=== PATIENT | female | born 1975 | race Caucasian/White ===

== ENCOUNTER 2018-05-17 18:54 | Emergency (ER) | payer SELFPAY ==
[2018-05-17] MEDS ORDERED: ASPIRIN PO ONE (19:02)
[2018-05-17 20:24] LABS: Mean Corpuscular HGB Conc 30 % (30-34); Platelet Count 423 K/mm3 (140-440); Red Blood Count 4.67 M/mm3 (3.65-5.03)
[2018-05-17 20:25] LABS: Hematocrit 30.3 % (30.3-42.9)
[2018-05-17 20:26] LABS: Mean Corpuscular Volume 65 fl (79-97); Red Cell Distribution Width 25.1 % (13.2-15.2)
[2018-05-17 20:31] LABS: BUN/Creatinine Ratio 20; Blood Urea Nitrogen 16 mg/dL (7-17); Calcium 8.9 mg/dL (8.4-10.2); Hemolysis Index 0
[2018-05-17 20:52] LABS: Basophils % (Manual) 0 % (0.0-1.8); Eosinophils % (Manual) 0 % (0.0-4.3); Total Cells Counted 100
[2018-05-17 20:53] LABS: Anisocytosis 2+; Hypochromasia 2+; Ovalocytes 1+; Platelet Estimate Consistent w Auto
--- NOTE | 2018-05-17 22:08 | Emergency Department Report ---
ED General Adult HPI - General Chief complaint: Dizziness Stated complaint: HYPERTENSION Time Seen by Provider: 05/17/18 22:00 Source: patient Mode of arrival: Ambulatory Limitations: No Limitations - History of Present Illness Initial comments: Patient is 42 years old female with no significant past medical history. Patient presented to the ER complaining of dizziness, shortness of breath, pain to the left arm and shoulder. Patient stated that she went to the police station and they check her blood pressure was high. Patient stated that she never had any high blood pressure before. Patient denied any weakness, numbness or tingling sensation. She denied chest pain. - Related Data Allergies Allergy/AdvReac Type Severity Reaction Status Date / Time No Known Allergies Allergy Verified 05/17/18 23:38 ED Review of Systems ROS: Stated complaint: HYPERTENSION Other details as noted in HPI Comment: All other systems reviewed and negative Constitutional: denies: chills, fever Cardiovascular: palpitations. denies: chest pain Gastrointestinal: denies: abdominal pain, nausea, vomiting, diarrhea, constipation, hematemesis, melena, hematochezia Musculoskeletal: denies: back pain Neurological: denies: headache, weakness, numbness, paresthesias, confusion ED Past Medical Hx - Past Medical History Previous Medical History?: Yes Additional medical history: anemia - Surgical History Past Surgical History?: Yes Additional Surgical History: C section - Social History Smoking Status: Never Smoker Substance Use Type: None ED Physical Exam - General Limitations: No Limitations General appearance: alert, in no apparent distress - Head Head exam: Present: atraumatic, normocephalic, normal inspection - Eye Eye exam: Present: normal appearance - ENT ENT exam: Present: normal exam, normal orophraynx, mucous membranes moist - Neck Neck exam: Present: normal inspection, full ROM. Absent: tenderness, meningismus, lymphadenopathy, thyromegaly - Respiratory Respiratory exam: Present: normal lung sounds bilaterally - Cardiovascular Cardiovascular Exam: Present: regular rate, normal rhythm, normal heart sounds - GI/Abdominal GI/Abdominal exam: Present: soft, normal bowel sounds. Absent: distended, tenderness, guarding, rebound, rigid, organomegaly, mass, bruit, pulsatile mass, hernia - Extremities Exam Extremities exam: Present: normal inspection, full ROM, normal capillary refill. Absent: pedal edema, calf tenderness - Back Exam Back exam: Present: normal inspection, full ROM. Absent: tenderness, CVA tenderness (R), CVA tenderness (L), muscle spasm, paraspinal tenderness, vertebral tenderness, rash noted - Neurological Exam Neurological exam: Present: alert, oriented X3, CN II-XII intact, normal gait, reflexes normal - Skin Skin exam: Present: warm, intact, normal color ED Course Vital Signs 05/17/18 05/17/18 18:59 22:30 Temperature 98 F Pulse Rate 103 H 83 Respiratory 16 14 Rate Blood Pressure 162/98 168/84 O2 Sat by Pulse 100 100 Oximetry ED Medical Decision Making - Lab Data Result diagrams: 05/17/18 20:06 05/17/18 20:06 - EKG Data -: EKG Interpreted by Sc EKG shows normal: sinus rhythm Rate: normal - EKG Data Interpretation: no acute changes - Radiology Data Radiology results: report reviewed Referring Physician: CINDI MONTENEGRO Patient Name: MAXWELL CUNNINGHAM Date of : 1975 Sex: Female Report Date: 2018-05-17 Report Status: Finalized Findings [facility] [address] [place] [address] XRay Report Signed Patient: MAXWELL CUNNINGHAM MR#: [id number] : 1975 Acct:[id number] Age/Sex: 42 / F ADM Date: 05/17/18 Loc: ED Attending Dr: Ordering Physician: CINDI MONTENEGRO Date of Service: 05/17/18 Procedure(s): XR chest 1V ap Accession Number(s): [id number] cc: CINDI MONTENEGRO Fluoro Time In Minutes: FINAL REPORT EXAM: XR CHEST 1V AP HISTORY: chest pain COMPARISON: None available. FINDINGS: Frontal view(s) of the chest obtained. Cardiac silhouette within normal limits. No gross consolidation or effusion. No pneumothorax. IMPRESSION: No grossly acute findings. Transcribed By: LMA Dictated By: ILTA SANTORO MD Electronically Authenticated By: LITA SANTORO MD Signed Date/Time: 05/17/182258 DD/ 00 TD/TT: 05/17/182300 Referring Physician: CINDI MONTENEGRO Patient Name: MAXWELL CUNNINGHAM Date of : 1975 Sex: Female Report Date: 2018-05-18 Report Status: Finalized Findings [facility] [address] [place] [address] Cat Scan Report Signed Patient: MAXWELL CUNNINGHAM MR#: [id number] : 1975 Acct:[id number] Age/Sex: 42 / F ADM Date: 05/17/18 Loc: ED Attending Dr: Ordering Physician: CINDI MONTENEGRO Date of Service: 05/18/18 Procedure(s): CT head/brain wo con Accession Number(s): [id number] cc: CINDI MONTENEGRO FINAL REPORT EXAM: CT HEAD/BRAIN WO CON HISTORY: dizziness TECHNIQUE: Routine axial imaging was obtained of the brain without IV contrast. FINDINGS: There is no evidence of acute stroke or hemorrhage. The ventricular system is appropriate in size and is symmetric. The visualized sinuses are clear. The mastoid air cells are well pneumatized. The calvarium appears intact. IMPRESSION: Within normal limits. Transcribed By: RB Dictated By: CHER MARK MD Electronically Authenticated By: CHER MARK MD Signed Date/Time: 05/18/1856 DD/ TD/TT: 05/18/1858 - Medical Decision Making Patient is 42 years old female with no significant past medical history. Patient presented to the ER complaining of dizziness, shortness of breath, pain to the left arm and shoulder. Patient stated that she went to the police station and they check her blood pressure was high. Patient stated that she never had any high blood pressure before. Patient denied any weakness, numbness or tingling sensation. She denied chest pain. EKG is unremarkable. Chest x-ray is negative for acute finding. CT brain is negative also. The patient had 2 sets of troponin is negative. I believe patient's symptoms is most likely secondary to increased high blood pressure. Patient stated that she is feeling much better after clonidine. I will start pravin nowak on Norvasc and hydrochlorothiazide and asked the patient to follow-up with her primary care physician in the next 2-3 days and to return to the ER if symptoms are not improved. Critical care attestation.: If time is entered above; I have spent that time in minutes in the direct care of this critically ill patient, excluding procedure time. ED Disposition Clinical Impression: Dizziness, Malignant hypertension Disposition: DC-01 TO HOME OR SELFCARE Is pt being admited?: No Condition: Stable Instructions: Hypertension (ED), Dizziness (ED) Referrals: [facility] [Provider Group] - 3-5 Days
--- NOTE | 2018-05-17 22:59 | XRay Report ---
FINAL REPORT EXAM: XR CHEST 1V AP HISTORY: chest pain COMPARISON: None available. FINDINGS: Frontal view(s) of the chest obtained. Cardiac silhouette within normal limits. No gross consolidatio n or effusion. No pneumothorax. IMPRESSION: No grossly acute findings.
[2018-05-18 00:10] LABS: Bilirubin,Urine NEG (Negative); Blood,Urine NEG (Negative); Color,Urine Yellow (Yellow); Mucus,Urine FEW /HPF; Protein,Urine <15 mg/dL mg/dL (Negative); RBC,Urine < 1.0 /HPF (0.0-6.0); Urobilinogen,Urine < 2.0 mg/dL (<2.0)
[2018-05-18] MEDS ORDERED: TYLENOL PO ONE (00:36)
--- NOTE | 2018-05-18 00:57 | Cat Scan Report ---
FINAL REPORT EXAM: CT HEAD/BRAIN WO CON HISTORY: dizziness TECHNIQUE: Routine axial imaging was obtained of the brain without IV contrast. FINDINGS: There is no evidence of acute stroke or hemorrhage. The ventricular system is appropriate in size and is symmetric. The visualized sinuses are clear. The mastoid air cells are well pneumatized. The calv arium appears intact. IMPRESSION: Within normal limits.
[2018-05-18 01:07] VITALS: BP 152/82
== END 2018-05-18 01:14 | disposition home or self-care (01) ==
LOC: ED 18:54
DX: R42 Dizziness and giddiness (principal); I10 Essential (primary) hypertension; R06.02 Shortness of breath; M79.602 Pain in left arm; D64.9 Anemia, unspecified
CPT/HCPCS: 36415; 70450; 71045; 80048; 81001; 83880; 84484; 84703; 85007; 85025; 85379; 93005; 93010

== ENCOUNTER 2018-09-08 03:37 | Emergency (ER) | payer SELFPAY ==
[2018-09-08 06:14] VITALS: BP 145/79
[2018-09-08] MEDS ORDERED: DECADRON IM ONE (06:18)
[2018-09-08] MEDS ORDERED: TORADOL IM ONE (06:18)
[2018-09-08] MEDS ORDERED: FLEXERIL PO ONE (06:18)
--- NOTE | 2018-09-08 06:59 | Emergency Department Report ---
ED General Adult HPI - General Chief complaint: High BP Stated complaint: HBP/HEADACHE/NAUSEA Time Seen by Provider: 09/08/18 05:15 Source: patient, family Mode of arrival: Ambulatory Limitations: No Limitations - History of Present Illness Initial comments: Patient is a 43-year-old female with a history of chronic cervical disc disease and presents to the ED with complaint of persistent severe neck pain but Friday it so her midposterior thoracic area and headache for the last 1 week. The patient stated that she has been taking [id number] medication with no relief. Patient also states that with this severe pain, high blood pressure has also been taking significantly elevated. Patient states that she does not take any blood pressure medicine. Patient denies chest pain, shortness of breath, dizziness, change in vision, diaphoresis, nausea, vomiting, loss of consciousness, numbness and tingling of her upper and lower extremities bilaterally or abdominal pain and hematuria, or lifting, fall or traumatic injury. MD Complaint: neck pain, headache, elevated BP -: Gradual, month(s) (6) Location: head, back Radiation: back, neck Severity scale (0 -10): 6 Quality: aching, sharp Consistency: constant Improves with: none Worsens with: movement Associated Symptoms: headaches. denies: confusion, chest pain, cough, diaphoresis, fever/chills, loss of appetite, malaise, nausea/vomiting, rash, shortness of breath, syncope, weakness, other Treatments Prior to Arrival: none - Related Data Previous Rx's Medication Instructions Recorded Last Taken Type amLODIPine [Norvasc] 5 mg PO DAILY #30 tab 05/18/18 Unknown Rx hydroCHLOROthiazide [HCTZ] 25 mg PO QDAY #30 tablet 05/18/18 Unknown Rx Baclofen [Lioresal] 10 mg PO Q8H PRN #18 tablet 09/08/18 Unknown Rx Ketoprofen 50 mg PO Q8H PRN #24 capsule 09/08/18 Unknown Rx Prednisone [predniSONE 10 mg 10 mg PO .TAPER #21 tab.ds.pk 09/08/18 Unknown Rx (6-Day Pack, 21 Tabs)] traMADol [Ultram] 50 mg PO Q6HR PRN #15 tablet 09/08/18 Unknown Rx Allergies Allergy/AdvReac Type Severity Reaction Status Date / Time No Known Allergies Allergy Verified 05/17/18 23:38 ED Review of Systems ROS: Stated complaint: HBP/HEADACHE/NAUSEA Other details as noted in HPI Comment: All other systems reviewed and negative Constitutional: no symptoms reported, see HPI. denies: diaphoresis, fever, malaise Eyes: as per HPI. denies: eye pain, eye discharge, vision change ENT: as per HPI. denies: ear pain, throat pain, dental pain, hearing loss, epistaxis Respiratory: no symptoms reported. denies: see HPI, cough, orthopnea, shortness of breath, SOB with exertion, SOB at rest Cardiovascular: as per HPI. denies: chest pain, palpitations, dyspnea on exertion, edema, syncope, paroxysmal nocturnal dyspnea Endocrine: no symptoms reported, see HPI. denies: excessive sweating, intolerance to cold, intolerance to heat, increased hunger, increased urine, unexplained weight gain Gastrointestinal: as per HPI. denies: abdominal pain, nausea, vomiting, diarrhea, constipation, hematemesis, hematochezia Genitourinary: as per HPI. denies: urgency, frequency, hematuria Musculoskeletal: back pain (Posterior upper thoracic), arthralgia (neck). denies: joint swelling, myalgia Skin: as per HPI. denies: rash, lesions, change in color, change in hair/nails Neurological: as per HPI, headache. denies: weakness, numbness, paresthesias, confusion, abnormal gait, vertigo Psychiatric: as per HPI. denies: auditory hallucinations, visual hallucinations, homicidal thoughts, suicidal thoughts Hematological/Lymphatic: as per HPI. denies: easy bruising, swollen glands ED Past Medical Hx - Past Medical History Previous Medical History?: Yes Hx Hypertension: Yes Additional medical history: anemia - Surgical History Past Surgical History?: Yes Additional Surgical History: C section x2 - Social History Smoking Status: Never Smoker Substance Use Type: None - Medications Home Medications: Home Medications Medication Instructions Recorded Confirmed Last Taken Type amLODIPine [Norvasc] 5 mg PO DAILY #30 tab 05/18/18 Unknown Rx hydroCHLOROthiazide [HCTZ] 25 mg PO QDAY #30 tablet 05/18/18 Unknown Rx Baclofen [Lioresal] 10 mg PO Q8H PRN #18 tablet 09/08/18 Unknown Rx Ketoprofen 50 mg PO Q8H PRN #24 capsule 09/08/18 Unknown Rx Prednisone [predniSONE 10 mg 10 mg PO .TAPER #21 tab.ds.pk 09/08/18 Unknown Rx (6-Day Pack, 21 Tabs)] traMADol [Ultram] 50 mg PO Q6HR PRN #15 tablet 09/08/18 Unknown Rx ED Physical Exam - General Limitations: No Limitations General appearance: alert, in no apparent distress - Head Head exam: Present: atraumatic, normocephalic, normal inspection - Eye Eye exam: Present: normal appearance, PERRL, EOMI. Absent: scleral icterus, conjunctival injection, periorbital swelling, periorbital tenderness Pupils: Present: normal accommodation - ENT ENT exam: Present: normal exam, normal orophraynx, mucous membranes moist, TM's normal bilaterally, normal external ear exam - Neck Neck exam: Present: normal inspection, tenderness (palpable cervical paraspinal tenderness). Absent: meningismus, full ROM (due to pain), lymphadenopathy, thyromegaly - Respiratory Respiratory exam: Present: normal lung sounds bilaterally. Absent: respiratory distress, wheezes, rales, rhonchi, chest wall tenderness, accessory muscle use, decreased breath sounds, prolonged expiratory - Cardiovascular Cardiovascular Exam: Present: regular rate, normal rhythm, normal heart sounds. Absent: bradycardia, tachycardia - GI/Abdominal GI/Abdominal exam: Present: soft, normal bowel sounds. Absent: distended, tenderness, guarding, rebound, hyperactive bowel sounds, hypoactive bowel sounds, organomegaly - Rectal Rectal exam: Present: deferred - Extremities Exam Extremities exam: Present: normal inspection, full ROM, normal capillary refill. Absent: tenderness, pedal edema, joint swelling - Back Exam Back exam: Present: normal inspection, tenderness (palpable posterior upper thoracic tenderness), muscle spasm, paraspinal tenderness. Absent: CVA tenderness (R), CVA tenderness (L), vertebral tenderness - Neurological Exam Neurological exam: Present: alert, oriented X3, CN II-XII intact, normal gait, reflexes normal - Psychiatric Psychiatric exam: Present: normal affect - Skin Skin exam: Present: warm, dry, intact, normal color ED Course Vital Signs 09/08/18 09/08/18 09/08/18 03:38 03:40 06:13 Temperature 97.7 F 97.7 F Pulse Rate 77 76 78 Respiratory 18 18 17 Rate Blood Pressure 175/81 175/81 Blood Pressure 145/79 [Right] O2 Sat by Pulse 100 100 99 Oximetry - Reevaluation(s) Reevaluation #1: 09/08/18 07:06 Patient is alert and oriented 3 and is not in distress but hypertensive in triage. Patient was treated for pain in the ED and the vital signs rechecked. Patient blood pressure normalized in the ED. Patient was treated for pain in the ED and upon reevaluation, patient's pain is controlled and her blood pressure is still normal. I explained to the patient that her neck pain being chronic and may be what is causing the muscle and neck to spasm causing the headache and with the pain increasingly getting worse and blood pressure elevates causing more headache. On reevaluation, patient's pain is well controlled patient discharged home on pain medications and muscle relaxants, and advised to follow-up with her primary care physician in 7-10 days for reevaluation, or return to the ED immediately if symptoms get worse. ED Medical Decision Making - Medical Decision Making Patient is alert and oriented 3 and is not in distress but hypertensive in triage. Patient was treated for pain in the ED and the vital signs rechecked. Patient blood pressure normalized in the ED. Patient was treated for pain in the ED and upon reevaluation, patient's pain is controlled and her blood pressure is still normal. I explained to the patient that her neck pain being chronic and may be what is causing the muscle and neck to spasm causing the headache and with the pain increasingly getting worse and blood pressure elevates causing more headache. On reevaluation, patient's pain is well controlled patient discharged home on pain medications and muscle relaxants, and advised to follow-up with her primary care physician in 7-10 days for reevaluation, or return to the ED immediately if symptoms get worse. - Differential Diagnosis cervical radiculopathy, tension headache, cervical sprain Critical care attestation.: If time is entered above; I have spent that time in minutes in the direct care of this critically ill patient, excluding procedure time. ED Disposition Clinical Impression: Cervical paraspinal muscle spasm, Cervical disc disorder Tension headache, chronic Qualifiers: Intractability: not intractable Qualified Code(s): G44.229 - Chronic tension- type headache, not intractable Disposition: DC-01 TO HOME OR SELFCARE Is pt being admited?: No Does the pt Need Aspirin: No Condition: Stable Instructions: Degenerative Disc Disease (ED), Cervical Sprain (ED), Tension Headache (ED) Additional Instructions: Take medications with food, drink plenty of fluids and follow up with your primary care physician in 7-10 days for reevaluation. Return to the ED immediately if symptoms get worse. Prescriptions: Ketoprofen 50 mg PO Q8H PRN #24 capsule PRN Reason: Pain , Severe (7-10) Baclofen [Lioresal] 10 mg PO Q8H PRN #18 tablet PRN Reason: Spasms Prednisone [predniSONE 10 mg (6-Day Pack, 21 Tabs)] 10 mg PO .TAPER #21 tab.ds.pk traMADol [Ultram] 50 mg PO Q6HR PRN #15 tablet PRN Reason: Pain Referrals: GUY MORA MD [Primary Care Provider] - 3-5 Days Time of Disposition: 06:58 Print Language: LIBYAN
== END 2018-09-08 07:19 | disposition home or self-care (01) ==
LOC: ED 03:37
DX: G44.229 Chronic tension-type headache, not intractable (principal); R25.2 Cramp and spasm; M53.82 Other specified dorsopathies, cervical region
CPT/HCPCS: 93005; 93010; 96372; 99282; J1100; J1885